=== PATIENT | male | born 2000 | race Caucasian/White ===

== ENCOUNTER 2022-09-20 11:32 | Emergency (ER) | payer OTHER, SELFPAY ==
[2022-09-20 11:39] VITALS: BP 110/62; PULSE 64; RESP 20; TEMP 37.2; O2SAT 99
--- NOTE | 2022-09-20 11:50 | ED.EAR ---
HPI - Ear Problem General Chief complaint: Ear Stated complaint: ear pain Time Seen by Provider: 09/20/22 11:50 Source: patient, RN notes reviewed and old records reviewed Mode of arrival: ambulatory Limitations: no limitations History of Present Illness HPI Narrative: 22-year-old male who presents to [facility] with complaints of right ear pain since Friday. Patient states he has noted some bloody drainage from his right ear denies any change in hearing. Patient reports he has had no fevers or chills he has noted some sinus congestion and drainage denies any sore throat, GERD, cough, or any shortness of breath. Patient has not been COVID vaccinated nor has he had flu shot. MD Complaint: ear pain and ear discharge (bloody) Location: right ear Duration: constant Severity: moderate Discharge from ear: Reports yes - bloody Associated symptoms ear: rhinorrhea Related Data Allergies Allergy/AdvReac Type Severity Reaction Status Date / Time No Known Allergies Allergy Verified 09/20/22 11:45 Review of Systems Review of Systems: CONSTITUTIONAL: Denies malaise, chills, sweats, or fever. EYES: Denies visual changes, redness, or discharge. ENT: Reports rhinorrhea, congestion, sinus pain, right ear otalgia, denies sore throat. CARDIOVASCULAR: Denies chest pain, palpitations, or edema. RESPIRATORY: denies cough.? Denies dyspnea. GASTROINTESTINAL: Denies abdominal pain, nausea, vomiting, diarrhea SKIN: Denies rash or itching. MUSCULOSKELETAL: Denies myalgia. NEUROLOGIC: Denies headache. All systems reviewed & are unremarkable except as noted in HPI and below PMFSH Past Medical History Medical History (Updated 09/20/22 @ 12:27 by Bhavna Mercado NP) Strep throat Surgical History Surgical History (Updated 09/20/22 @ 12:26 by Bhavna Mercado NP) No history of previous surgery Social History Social History (Updated 09/20/22 @ 12:25 by Bhavna Mercado NP) Smoking packs per day: 0.5 Smoking cigarettes per day: 10.0 Years smoked: 5 Smoking pack-years: 2.50 Smoking status: Current every day smoker Tobacco type: cigarettes Alcohol intake: current Alcohol use details: social Substance use type: does not use Living arrangements: with family Gender identity (if verbalized by the patient): Male Comments At time of signature, agree with nursing past medical, surgical, social and family history. There is no relevant family history pertinent to the presenting complaint Exam Narrative: GENERAL: Well-appearing, well-nourished, and in no acute distress. HEAD: Normocephalic EYES: PERRLA, conjunctivae clear ENT: Nares clear, turbinates edematous and erythematous, clear discharge. Mucous membranes moist. TM pearly perrin with dull light reflex bilaterally;right ear canal red and excoriated with some bloody drainage noted. no tragal tenderness. Oropharynx erythematous without lesions. Tonsils not enlarged and without exudate, no drooling, no hoarseness, no trismus, uvula midline. NECK: Supple. No lymphadenopathy CHEST: Clear to auscultation, breath sounds equal. No wheezing, rhonchi, rales, or stridor. No respiratory distress, speaks in full sentences no cough noted SAO2 99% on room air. HEART: Regular rate and rhythm. No murmur heard. SKIN: Warm, dry, no rash. NEURO: Alert and oriented x3. PSYCH: Normal mood and affect Course Course Emergency Course: Patient is aware of diagnosis, understands and agrees to treatment plan.? Anticipatory guidance given.? Patient agrees to follow-up as directed and is aware of reasons to seek care at the emergency department. Portions of this record may have been created with voice recognition software Level of Care: Express Care Visit Vital Signs Vital signs: Vital Signs Temperature 37.2 C 09/20/22 11:39 Pulse Rate 64 09/20/22 11:39 Respiratory Rate 20 09/20/22 11:39 Blood Pressure 110/62 09/20/22 11:39 Pulse Oximetry
== END 2022-09-20 12:10 | disposition home or self-care (01) ==
PROVIDERS: Emergency Provider Registered Nurse
DX: H60.501 Unspecified acute noninfective otitis externa, right ear (principal); F17.210 Nicotine dependence, cigarettes, uncomplicated
CPT/HCPCS: 99213; G0463